=== PATIENT | female | born 1975 | race Caucasian/White ===

== ENCOUNTER 2020-08-13 02:52 | Emergency (ER) | payer OTHER ==
[~2020-08-13] VITALS: Ht 165.1 cm; Wt 61.4 kg
[2020-08-13 03:00] VITALS: BP 122/93
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
--- NOTE | 2020-08-13 04:49 | NUR ---
Pt declined placement by [facility], but stated she would contact them at their offices on Saturday. Pt was given [facility] crisis number, and a cab ride to where she was picked up by [email or web address].
== END 2020-08-13 04:56 | disposition home or self-care (01) ==
LOC: ER 02:55
DX: F19.10 Other psychoactive substance abuse, uncomplicated (principal); R53.81 Other malaise
CPT/HCPCS: 99283